=== PATIENT | female | born 1985 | race Asian ===

== ENCOUNTER 2017-07-18 08:04 | Inpatient (IN) | payer SELFPAY ==
[~2017-07-18] VITALS: Ht 160 cm; Wt 63.5 kg
[2017-07-18] MEDS ORDERED: NALBUPHINE 10 MG/ML AMP IVP PRN (08:15)
[2017-07-18] MEDS ORDERED: PROMETHAZINE 25 MG/ML VIAL IM PRN (08:15)
[2017-07-18 08:55] LABS: BASOPHILS # (AUTO) 0.1 K/uL (0.00-0.22); EOSINOPHILS # (AUTO) 0.1 K/uL (0-0.4); EOSINOPHILS % (AUTO) 1.4 % (0.0-4.0); HEMATOCRIT 35.3 % (36-48); HEMOGLOBIN 11.6 g/dL (12.0-16.0); LYMPHOCYTES # (AUTO) 1.2 K/uL (2.5-16.5); LYMPHOCYTES % (AUTO) 25.4 % (20.5-51.1); MEAN CORPUSCULAR HEMOGLOBIN 31 pg (27-31); MEAN CORPUSCULAR HGB CONC 33 g/dL (33-37); MEAN CORPUSCULAR VOLUME 95 fL (80-94); MONOCYTES # (AUTO) 0.5 K/uL (0.8-1.0); MONOCYTES % (AUTO) 10.6 % (1.7-9.3); NEUTROPHILS # (AUTO) 2.8 K/uL (1.8-7.7); NEUTROPHILS % (AUTO) 60.6 % (42.2-75.2); PLATELET COUNT (AUTO) 201 K/uL (140-450); RED BLOOD CELL COUNT(AUTO) 3.71 MIL/uL (4.20-5.40); RED CELL DISTRIBUTION WIDTH 16.9 % (11.6-13.7); WHITE BLOOD COUNT (AUTO) 4.7 K/uL (4.8-10.8)
[2017-07-18 08:57] LABS: APPEARANCE,URINE CLEAR (CLEAR); BILIRUBIN,URINE NEGATIVE (NEGATIVE); BLOOD, URINE TRACE-I (NEGATIVE); COLOR,URINE YELLOW (YELLOW); LEUKOCYTE ESTERASE ,URINE TRACE (NEGATIVE); NITRITE, URINE NEGATIVE (NEGATIVE); UGLUCOSE NEGATIVE (NEGATIVE)
[2017-07-18 09:06] LABS: ANION GAP 9.1 (8-16); CARBON DIOXIDE 26.9 mmol/L (21-32); CREATININE 0.6 mg/dL (0.6-1.3)
[2017-07-18 09:11] LABS: RBC,URINE 0-5 (RARE) /HPF (0-5)
[2017-07-18 09:13] LABS: ALBUMIN 2.5 g/dL (3.4-5.0); TOTAL BILIRUBIN 0.3 mg/dL (0.0-1.0)
--- NOTE | 2017-07-18 09:55 | NUR ---
PATIENT HAS BEEN SCREENED AND CATEGORIZED LOW NUTRITION RISK. PATIENT WILL BE SEEN WITHIN 7 DAYS OF ADMISSION. 07/24/[address]
[2017-07-18] MEDS ORDERED: ROPIVACAINE 0.2%/NS PREMIX 250 ML EPI ONE (10:28)
[2017-07-18] MEDS ORDERED: ROPIVACAINE 0.2%/NS PREMIX 250 ML EPI SCH (10:40)
[2017-07-18] MEDS ORDERED: OXYTOCIN 20 UNITS/LR PREMIX 1,000 ML IV ONE (11:27)
[2017-07-18 11:44] VITALS: BP 100/52
[2017-07-18] MEDS ORDERED: CARBOPROST 250 MCG/ML AMP IM PRN (12:00)
[2017-07-18] MEDS ORDERED: OXYTOCIN 10 UNITS/ML VIAL IM SCH (12:00)
[2017-07-18] MEDS ORDERED: METHYLERGONOVINE 0.2 MG/ML AMP IM PRN ×2 (12:00→21:50)
[2017-07-18] MEDS ORDERED: OXYTOCIN 20 UNITS in LACTATED RINGERS 1,000 ML IV SCH (12:05)
[2017-07-18] MEDS ORDERED: LACTATED RINGERS 1,000 ML IV SCH (12:05)
[2017-07-18] MEDS ORDERED: MISOPROSTOL 25 MCG TAB VG PRN (12:05)
[2017-07-18] MEDS ORDERED: OXYTOCIN 10 UNITS/ML VIAL ONE (15:37)
[2017-07-18] MEDS ORDERED: MEASLES, MUMPS, AND RUBELLA 1 VIAL SQVAC PRN (21:50)
[2017-07-18] MEDS ORDERED: TEMAZEPAM 15 MG CAP PO PRN (21:50)
[2017-07-18] MEDS ORDERED: oxyCODONE/APAP 5/325 MG 1 TAB TAB PO PRN (21:50)
[2017-07-18] MEDS ORDERED: OXYTOCIN 10 UNITS/ML VIAL IM PRN (21:50)
[2017-07-18] MEDS ORDERED: BENZOCAINE/MENTHOL 20%-0.5% 60 GM CAN TP PRN (21:50)
[2017-07-18] MEDS ORDERED: METHYLERGONOVINE 0.2 MG TAB PO PRN (21:50)
[2017-07-18] MEDS ORDERED: HYDROcodone/APAP 5/325 MG 1 TAB TAB PO PRN (21:50)
[2017-07-18] MEDS ORDERED: BETHANECHOL 25 MG TAB PO PRN (22:35)
[2017-07-19 05:21] LABS: HEMOGLOBIN 9.2 g/dL (12.0-16.0)
[2017-07-19] MEDS: IBUPROFEN 800 MG TAB PO PRN ×2 (07:58→20:02)
[2017-07-19] MEDS ORDERED: DOCUSATE SOD/SENNA 50/8.6 MG 1 TAB PO SCH ×2 (21:00)
[2017-07-19] MEDS ORDERED: INFLUENZA VIRUS VACCINE QUAD 0.5 ML SYR IMVAC SCH (23:20)
== END 2017-07-20 12:45 | disposition home or self-care (01) | DRG 775 ==
LOC: MLD 08:04 → MFCC 20:50
PROVIDERS: ADMIT Obstetrics & Gynecology; ATTEND Obstetrics & Gynecology
PROC: 10E0XZZ Delivery of Products of Conception, External Approach (ICD-10-PCS; principal; 2017-07-18)
PROC: 0DQR0ZZ Repair Anal Sphincter, Open Approach (ICD-10-PCS; 2017-07-18)
PROC: 00HU33Z Insertion of Infusion Device into Spinal Canal, Percutaneous Approach (ICD-10-PCS; 2017-07-18)
PROC: 3E0R3BZ Introduction of Anesthetic Agent into Spinal Canal, Percutaneous Approach (ICD-10-PCS; 2017-07-18)
DX: O70.20 Third degree perineal laceration during delivery, unspecified (principal); Z37.0 Single live birth; Z3A.39 39 weeks gestation of pregnancy
CPT/HCPCS: 36415; 51702; 80053; 81001; 85018; 85025; 86592; 86886; 86900; 86901; 87086; 90658; 90715; C1758; J2590; J2795; J7120